=== PATIENT | male | born 1955 | race Caucasian/White ===

== ENCOUNTER 2016-09-02 06:57 | Day surgery (SDC) | payer OTHER ==
[~2016-09-02] VITALS: Ht 190.5 cm; Wt 91.0 kg
[2016-09-02 07:11] VITALS: BP 138/80
[2016-09-02] MEDS: LACTATED RINGERS 1,000 ML IV SCH (07:21)
[2016-09-02] MEDS: SODIUM CHLORIDE FLUSH 3 ML SYR IV PRN (07:21)
[2016-09-02] MEDS ORDERED: PROPOFOL 20 ML IV ONE (07:37)
[2016-09-02] MEDS ORDERED: ALFENTANIL 500 MCG/ML (ALFENTA) 5 ML AMP IV ONE ×2 (07:37)
[2016-09-02] MEDS ORDERED: MIDAZOLAM 2 MG/2 ML (VERSED) VIAL ONE (07:37)
[2016-09-02 08:54] VITALS: BP 109/51
[2016-09-02 09:56] VITALS: BP 125/71
[2016-09-02 10:30] VITALS: BP 122/80
[2016-09-02 11:02] VITALS: BP 138/79
[2016-09-02 11:24] VITALS: BP 119/78
== END 2016-09-02 11:42 | disposition home or self-care (01) ==
LOC: ASC 06:57
PROVIDERS: ATTEND Surgery
PROC: 0DBP8ZX Excision of Rectum, Via Natural or Artificial Opening Endoscopic, Diagnostic (ICD-10-PCS; principal; 2016-09-02)
DX: Z12.11 Encounter for screening for malignant neoplasm of colon (principal); Z86.010 Personal history of colon polyps; K62.1 Rectal polyp; Z83.71 Family history of colonic polyps; E66.9 Obesity, unspecified; Z68.32 Body mass index [BMI] 32.0-32.9, adult